=== PATIENT | male | born 1945 | race African-American/Black ===

== ENCOUNTER 2023-03-14 20:26 | Observation (INO) | payer MEDICARE, SELFPAY ==
[2023-03-14] VITALS (7 sets, daily range): BP systolic 129–147; BP diastolic 80–94; PULSE 79–97; RESP 15–20; TEMP 36.7–37.1; O2SAT 97–100
--- NOTE | ~2023-03-14 | XR_ITS ---
EXAMINATION: XR chest 1V portable DATE: 03/14/2023 21:55 INDICATION: Syncope. TECHNIQUE: A single frontal view of the chest was obtained. COMPARISON: None. FINDINGS: There is no pneumonia, pleural effusion, or pneumothorax. Cardiomegaly is noted. A screw ov erlies right acromion. IMPRESSION: 1. Cardiomegaly. Reviewed, dictated and finalized at location E. RSONIC ENGINEER IMPRESSION: 1. Cardiomegaly.
--- NOTE | ~2023-03-14 | US_ITS ---
EXAMINATION: US carotid duplex BI DATE: 03/15/2023 13:18 INDICATION: Syncope. Cerebral atherosclerosis. TECHNIQUE: Grayscale, color Doppler, and pulsed Doppler images of the cervical carotid arteries were obtained. The degree of vessel stenosis is placed in one of the following categories: normal, <50%, 5 0-69%, >=70% but less than near-occlusion, near-occlusion, or total occlusion. Note that percent sten osis relative to normal distal artery lumen diameter is indirectly measured from velocity measurement s as described by Magdi, et al. Radiology 2003; 229:340-346. COMPARISON: None. FINDINGS: RIGHT: The right common carotid artery (CCA) peak systolic velocity (PSV) is 62 cm/s. The right internal car otid artery (ICA) PSV is 78 cm/s. The right ICA end-diastolic velocity (EDV) is 11 cm/s. The right IC A/CCA PSV ratio is 1.3. Grayscale and color Doppler images yield an estimate of <50% diameter reducti on from plaque in the ICA. The external carotid artery (ECA) PSV is 60 cm/s. There is antegrade flow in the right vertebral artery. LEFT: The left CCA PSV is 70 cm/s. The left ICA PSV is 71 cm/s. The left ICA EDV is 19 cm/s. The left ICA/C CA PSV ratio is 1.0. Grayscale and color Doppler images yield an estimate of <50% diameter reduction from plaque in the ICA. The ECA PSV is 72 cm/s. There is antegrade flow in the left vertebral artery. IMPRESSION: 1. <50% stenosis in the right internal carotid artery. 2. <50% stenosis in the left internal carotid artery. 3. Cardiac arrhythmia is present. Correlate with EKG. Reviewed, dictated and finalized at location A. ST RESOURCE SPECIALIST
--- NOTE | ~2023-03-14 | CT_ITS ---
EXAMINATION: CT brain wo con DATE: 03/14/2023 21:05 INDICATION: Syncope. Fall. TECHNIQUE: Computed tomography (CT) of the head was performed without intravenous contrast. The mA wa s adjusted according to patient size. Iterative reconstruction technique was employed. The dose-lengt h product was 681.00 mGy-cm. COMPARISON: None FINDINGS: There are scattered areas of low attenuation in the cerebral white matter, which is within normal limits for the patient's age. There is no intracranial hemorrhage, acute infarction, or abnorm al intracranial mass lesion. The ventricles are normal in size. There are likely changes of right ocu lar lens replacement surgery. There is mild mucosal thickening in the ethmoid sinuses. The mastoid ai r cells are normal. IMPRESSION: 1. Normal aging brain. Reviewed, dictated and finalized at location E. ICAL DATA ASSOCIATE IMPRESSION: 1. Normal aging brain.
--- NOTE | ~2023-03-14 | CT_ITS ---
EXAMINATION: CTA chest PE protocol DATE: 03/14/2023 22:35 INDICATION: Shortness of breath. TECHNIQUE: Computed tomography angiography (CTA) of the chest was performed with 100 mL Omnipaque-350 intravenous contrast timed to evaluate the pulmonary arteries. Coronal maximum intensity projection 3D-reconstructions were created by the technologist. Automated exposure control and iterative reconst ruction technique were employed. The dose-length product was 775.16 mGy-cm. COMPARISON: None. FINDINGS: There is mild atelectasis bilaterally. No pleural effusion. Cardiomegaly is noted. No peric ardial effusion. There is ectasia of ascending aorta measuring 4.7 cm. There is no pulmonary embolus. There is a mildly enlarged prevascular node, likely reactive. There is severe thoracic spondylosis. IMPRESSION: 1. No pulmonary embolus. 2. Mildly enlarged mediastinal lymph node, likely reactive. 3. Ectasia of ascending aorta measuring 4.7 cm. Reviewed, dictated and finalized at location E. PLATER
--- NOTE | 2023-03-14 20:33 | ECG_ITS ---
Measurements Intervals [place] Rate: 84 P: [place]: 0 QRS: -59 QRSD: 96 T: 79 QT: 375 QTc: 444 Interpretive Statements ATRIAL FIBRILLATION MARKED LEFT AXIS DEVIATION [QRS AXIS < -30] ABNORMAL ECG NO PREVIOUS ECG AVAILABLE FOR COMPARISON Electronically Signed On 03-15-2023 17:31:01 LEAD PAINTER by Nito Newell M.D.
[2023-03-14 20:55] LABS: Basophils Percent Auto 0.8 % (0.2-1.2); Eosinophils Absolute Auto 0.3 K/mm3 (0-0.3); Eosinophils Percent Auto 5.5 % (0-4.4); Hematocrit 42.5 % (42.0-52.0); Hemoglobin 13.2 g/dL (14.0-18.0); Immature Granulocyte Absolute 0.01 K/mm3 (0.00-0.031); Immature Granulocyte Percent A 0.2 % (0-0.5); Lymphocytes Absolute Auto 1.35 K/mm3 (0.9-3.2); Lymphocytes Percent Auto 26.3 % (18.3-44.2); Mean Corpuscular HGB Conc 31.1 g/dl (32-36); Mean Corpuscular Volume 90.2 fl (80-100); Mean Platelet Volume 9.9 fl (7.4-10.4); Monocytes Absolute Auto 0.4 K/mm3 (0.1-0.6); Monocytes Percent Auto 8.2 % (2.6-8.5); Platelet Count Result 161 k/mm3 (150-375); Red Blood Count 4.71 M/mm3 (4.6-6.20); Red Cell Distribution Width 14.4 % (11.5-14.5); White Blood Count 5.1 K/mm3 (4.5-10.0)
[2023-03-14 21:07] LABS: Alanine Aminotransferase 35 U/L (6-50); Albumin Level 3.9 g/dL (3.5-5.1); Alkaline Phosphatase 109 U/L (38-126); Anion Gap 7 mmol/L (8-16); Aspartate Amino Transferase 40 U/L (17-59); Bilirubin,Total 1.9 mg/dL (0.2-1.3); Blood Urea Nitrogen 23 mg/dL (9-20); Calcium 8.9 mg/dL (8.4-10.2); Carbon Dioxide 27 mmol/L (22-30); Chloride 104 mmol/L (98-107); Estimated CRCL calculation 74 ml/min; Estimated Glomerular Filt Rate > 60; Glucose 106 mg/dL (65-110); Potassium 2.9 mmol/L (3.4-5.0); Sodium 138 mmol/L (137-145)
--- NOTE | 2023-03-14 21:56 | ED.DIZZY ---
HPI - Dizziness General Chief Complaint: Syncope <Mac Ocampo PA-C - Last Filed: 03/15/23 01:02> Stated Complaint: dizzy, syncope <Mac Ocampo PA-C - Last Filed: 03/15/23 01:02> Time Seen by Provider: 03/14/23 20:34 <Mac Ocampo PA-C - Last Filed: 03/15/23 01:02> Source: patient <GAYATRI Harris Last Filed: 03/15/23 01:02> Mode of arrival: EMS <GAYATRI Harris Last Filed: 03/15/23 01:02> Limitations: no limitations <Mac Ocampo PA-C - Last Filed: 03/15/23 01:02> History of Present Illness HPI Narrative: this is a 77-year-old male who presents to the ED via EMS from his home with chief complaint of syncopal episode. Reports 1 single episode 2 weeks ago and another 1 at occurring today. Reports he was seen by his primary doc 2 days ago and diagnosed with new onset AFib. The started on Eliquis, he was seen by polishing wheel repairer yesterday who increased his Eliquis. They were getting him set up for stress test and echocardiogram in the coming weeks. Patient reports that he bent over today to pick something up and when he stood up he felt lightheaded and had a syncopal episode. His is here and states he was out for about a minute. Denies head injury. Denies chest pain but does report that he felt short of breath earlier today. Reports leg swelling over the last few months that is increasing gradually as well as orthopnea. Denies fevers, chills, abdominal pain, nausea, vomiting, palpitations. <GAYATRI Harris Last Filed: 03/15/23 01:02> Related Data Home Medications: Home Medications Medication Instructions Recorded Confirmed amlodipine 10 mg tablet 10 mg PO DAILY 03/15/23 03/15/23 apixaban 5 mg tablet (Eliquis) 5 mg PO DAILY 03/15/23 03/15/23 atorvastatin 20 mg tablet 20 mg PO DAILY 03/15/23 03/15/23 hydrochlorothiazide 25 mg tablet 25 mg PO DAILY 03/15/23 03/15/23 hydrocodone 7.5 mg-acetaminophen 7.5 - 325 tablet PO DAILY 03/15/23 03/15/23 325 mg tablet metoprolol succinate 100 mg 100 mg PO DAILY 03/15/23 03/15/23 tablet,extended release 24 hr <Mac Ocampo PA-C - Last Filed: 03/15/23 01:02> Allergies/Adverse Reactions: Allergies Allergy/AdvReac Type Severity Reaction Status Date / Time No Known Allergies Allergy Verified 03/14/23 20:41 <Mac Ocampo PA-C - Last Filed: 03/15/23 01:02> Review of Systems Review of Systems: All systems as dictated in HPI <GAYATRI Harris Last Filed: 03/15/23 01:02> PMFSH Social History Social History: Social History Smoking status: Former smoker Alcohol intake: never Substance use: never Do You Feel Safe in your Home?: Yes Lack of Transportation: No Lack of Food: Never True Current Housing: I Have Housing Concerned About Future Housing: No Difficulty Paying Gas/Electric Bills: No Difficulty Paying for Meds: No Currently Unemployed: No Education: Decline to Answer Difficulty w/ Childcare or Family Care: No Spiritual care concerns: No <GAYATRI Harris Last Filed: 03/15/23 01:02> Exam Narrative: GENERAL: Well-appearing, well-nourished, and in no acute distress. HEAD: Normocephalic, atraumatic. EYES: PERRLA and EOMI. ENT: Nares clear, no rhinorrhea or epistaxis. Mucous membranes moist. Oropharynx without tonsillar hypertrophy exudate or other lesions. NECK: Supple. No adenopathy or masses. CHEST: No respiratory distress. Clear to auscultation. No wheezes rales or rhonchi HEART: Irregularly irregular rhythm. Normal rate.. No murmur heard. Normal peripheral pulses. ABDOMEN: Soft, nontender, nondistended, normal active bowel sounds. MSK: 1+ pitting edema to the bilateral ankles. SKIN: Warm, dry, no rash. NEURO: Alert and oriented x3. No focal deficits. PSYCH: Normal mood and affect. <GAYATRI Harris Last Filed: 03/15/23 01:02> Course DIRECTOR OF DIGITAL PLATFORMS/PA Physician Supervision For this patient encounter, I reviewed th
[2023-03-14 22:04] LABS: NT Pro B Type Natriuretic Pept 3660 pg/mL (19.9-100); Troponin I 0.147 ng/mL (0.000-0.034)
[2023-03-14] MEDS: POTASSIUM CHLORIDE 20 MEQ ER TABLET 40 MEQ PO (22:06)
[2023-03-14] MEDS: KCL 20 MEQ/SW 100 ML 100 ML 50 MEQ IVPB (23:07)
[2023-03-14] MEDS: SODIUM CHLORIDE 0.9% IV 500 ML IV CONT (23:07)
--- NOTE | 2023-03-14 23:59 | PM.IMHP ---
H&P: HPI History of Present Illness Date/Time: 03/14/23 23:59 Chief Complaint: syncope Narrative: This is a 77-year-old male with past medical history significant for hypertension, atrial fibrillation, rate controlled anticoagulated, patient presents to the emergency room after having a syncopal episode of while he bent over and upon standing syncopized and collapsed. Patient had a similar episode 2 days prior is scheduled for cardiology appointment in the outpatient setting through his primary care physician. Patient had some lightheadedness, palpitations at this time denies chest pain, nausea, vomiting, abdominal pain, cough, sputum production, fevers, rigors, chills, calf pain, PND, orthopnea has bilateral lower extremity ankle edema. The episode lasted for roughly for about a minute or so he was able to come back by himself. Preliminary workup was significant for troponins x2 mildly elevated at 0.147, 0.157 a BNP of 3660. Patient has been placed in observation for further evaluation management and treatment. EXAMINATION: CTA chest PE protocol DATE: 03/14/2023 22:35 INDICATION: Shortness of breath. TECHNIQUE: Computed tomography angiography (CTA) of the chest was performed with 100 mL Omnipaque-350 intravenous contrast timed to evaluate the pulmonary arteries. Coronal maximum intensity projection 3D-reconstructions were created by the technologist. Automated exposure control and iterative reconstruction technique were employed. The dose-length product was 775.16 mGy-cm. COMPARISON: None. FINDINGS: There is mild atelectasis bilaterally. No pleural effusion. Cardiomegaly is noted. No pericardial effusion. There is ectasia of ascending aorta measuring 4.7 cm. There is no pulmonary embolus. There is a mildly enlarged prevascular node, likely reactive. There is severe thoracic spondylosis. IMPRESSION: 1. No pulmonary embolus. 2. Mildly enlarged mediastinal lymph node, likely reactive. 3. Ectasia of ascending aorta measuring 4.7 cm. EXAMINATION: XR chest 1V portable DATE: 03/14/2023 21:55 INDICATION: Syncope. TECHNIQUE: A single frontal view of the chest was obtained. COMPARISON: None. FINDINGS: There is no pneumonia, pleural effusion, or pneumothorax. Cardiomegaly is noted. A screw overlies right acromion. IMPRESSION: 1. Cardiomegaly. EXAMINATION: CT brain wo con DATE: 03/14/2023 21:05 INDICATION: Syncope. Fall. TECHNIQUE: Computed tomography (CT) of the head was performed without intravenous contrast. The mA was adjusted according to patient size. Iterative reconstruction technique was employed. The dose-length product was 681.00 mGy-cm. COMPARISON: None FINDINGS: There are scattered areas of low attenuation in the cerebral white matter, which is within normal limits for the patient's age. There is no intracranial hemorrhage, acute infarction, or abnormal intracranial mass lesion. The ventricles are normal in size. There are likely changes of right ocular lens replacement surgery. There is mild mucosal thickening in the ethmoid sinuses. The mastoid air cells are normal. IMPRESSION: 1. Normal aging brain. Review of Systems Review of Systems: Syncope Constitutional: Constitutional: Denies chills, Denies fatigue, Denies fever(s), Denies frequent falls, Denies night sweats and Denies poor appetite Eyes: Eyes: Denies change in vision ENT: Denies dysphagia and Denies odynophagia Cardiovascular: Cardiovascular: Denies chest pain, Reports rapid heart rate, Reports pedal edema, Reports leg edema, Reports lightheadedness and Reports dyspnea on exertion Respiratory: Respiratory: Denies cough and Denies wheezing Gastrointestinal: Gastrointestinal: Denies abdominal pain, Denies dyspepsia, Denies heartburn, Denies diarrhea, Denies nausea and Denies vomiting Genitourinary: Genitourinary: Denies dysuria Musculoskeletal: Musculoskeletal: Denies back pain, Denies limited range of motion and Denies muscl
[2023-03-15] VITALS (18 sets, daily range): BP systolic 111–149; BP diastolic 69–95; PULSE 63–94; RESP 16–18; TEMP 36.1–36.8; O2SAT 96–100
--- NOTE | 2023-03-15 | ECG_ITS ---
Measurements Intervals [place] Rate: 81 P: [place]: 0 QRS: -22 QRSD: 97 T: 73 QT: 399 QTc: 466 Interpretive Statements ATRIAL FIBRILLATION BORDERLINE LEFT AXIS DEVIATION [QRS AXIS < -20] CANNOT RULE OUT PREVIOUS ANTEROSEPTAL HI ABNORMAL RHYTHM ECG COMPARED TO ECG 03/14/2023 20:36:56 NO SIGNIFICANT CHANGES Electronically Signed On 03-15-2023 17:39:32 MANAGER ESTATE by Nito Newell M.D.
[2023-03-15 00:36] LABS: Troponin I 0.159 ng/mL (0.000-0.034)
--- NOTE | 2023-03-15 01:19 | ADMGEN ---
This patient, Mike Granado, was admitted to IMU Room 206-01. Patient/family oriented to hospital policies and general routines including ID bracelet, bed and alarms, visiting hours, pain management, procedures, bathroom and other care routines, personal items, smoking policy, room service/diet, and visiting hours. Information on how to activate the Rapid Response Team has been discussed. Patient/Family are encouraged to report perceived risks to care and to ask questions if they do not understand what they are told or what they should do.
[2023-03-15] MEDS: ATORVASTATIN 20 MG TABLET PO (08:31)
[2023-03-15] MEDS: amLODIPine BESYLATE 5 MG TABLET 10 MG PO (08:32)
[2023-03-15] MEDS: APIXABAN 5 MG TABLET PO (08:32)
[2023-03-15] MEDS: HYDROcodone/acetaminophen (*CRX) 7.5-325 MG TABLET 1 TAB PO (08:32)
[2023-03-15] MEDS: METOPROLOL SUCCINATE EXT REL 100 MG TABCR PO (08:32)
[2023-03-15 08:35] LABS: Alanine Aminotransferase 33 U/L (6-50); Albumin Level 3.7 g/dL (3.5-5.1); Alkaline Phosphatase 99 U/L (38-126); Anion Gap 9 mmol/L (8-16); Aspartate Amino Transferase 43 U/L (17-59); Bilirubin Indirect 1.9 mg/dL (0-1.1); Blood Urea Nitrogen 19 mg/dL (9-20); Calcium 8.8 mg/dL (8.4-10.2); Carbon Dioxide 26 mmol/L (22-30); Chloride 105 mmol/L (98-107); Estimated CRCL calculation 74 ml/min; Estimated Glomerular Filt Rate > 60; Glucose 127 mg/dL (65-110); Magnesium 2.4 mg/dL (1.6-2.3); Potassium 3.3 mmol/L (3.4-5.0); Sodium 140 mmol/L (137-145)
[2023-03-15 09:12] LABS: Thyroid Stimulating Hormone Reflex 0.537 uIU/mL (0.465-4.68)
--- NOTE | 2023-03-15 09:33 | PM.CNCAR ---
Assessment and Plan Assessment and plan (1) Recurrent syncope: Code(s): R55 - Syncope and collapse Status: Acute Assessment and Plan: Precise etiology remains unclear at this time. However, historical description reveals consistent activity such as rising or change position leaning over just prior to loss of consciousness. While this was suggest more vasovagal etiology he was not orthostatic evaluation and denies intervening or progressive positional dizziness. Differential diagnosis includes carotid sinus hypersensitivity, pathologic/symptomatic bradycardia and or pathologic pause, less likely ventricular tachyarrhythmia, intravascular volume depletion, complication related to as yet undiagnosed underlying CAD or cardiomyopathy. At this time, primary concern is potential symptomatic bradycardia and/or pathologic pauses with atrial fibrillation on beta-toñito therapy remains a leading potential explanation. However, other considerations include carotid sinus hypersensitivity, ventricular arrhythmia particularly of LV dysfunction is noted which is a concern given elevated troponin possibly related to underlying as yet undiagnosed CAD. Then again, patient is not presenting with anginal symptoms or clinical suggestion of acute coronary syndrome yet at this time there is no other clear explanation for elevated troponin. We also discussed 30 day quality assurance monitor upon discharge and or implantable loop recorder. I would recommend and he would prefer more noninvasive approach in this regard initially particularly as his workup is ongoing. I also expressed my concern to the patient and to primary service with regards to continue systemic anticoagulation given recurrent unexplained syncope and this for head injury resulting catastrophic intracerebral bleeding complications yet patient remains at elevated risk for embolic stroke in persistent atrial fibrillation. Very difficult balance at this time. Recommend continue quality assurance monitor while in the hospital. Repeat orthostatic vital signs. Exclude infectious etiology as clinically relevant including urinalysis TSH was normal at 0.537. Correct electrolytes with potassium closer to 4.0. Liver function tests are normal. Check carotid arterial duplex ultrasound to assess for calcification carotid bulb, irregular eccentric plaquing more significant arterial stenosis than can be appreciated on exam. Very lengthy discussion held with the patient regarding the above considerations, workup and plan of care. Patient verbalized understanding. All questions answered to his satisfaction. Further recommendation to follow pending results. Overall, this is a very complicated yet pleasant gentleman which extensive workup is underway in the importance of expediting clarification of clinical status presentation is sepulveda. (2) Elevated troponin I level: Code(s): R79.89 - Other specified abnormal findings of blood chemistry Status: Acute Assessment and Plan: Fall patient is not presenting with anginal symptoms he does report longer standing exertional dyspnea which potentially may be anginal equivalent. He has no prior known history of CAD, however, given recurrent syncope, recent diagnosis of atrial fibrillation, age, hypertension hyperlipidemia CAD this statistically likely. If significant LV dysfunction and or focal wall motion abnormalities are identified may consider coronary angiography to delineate coronary anatomy given recurrent syncope, new cardiomyopathy. However, he does not carry this diagnosis and recommendation will need be forthcoming after review of his echocardiogram. Furthermore, he would require 48 hour washout of Eliquis to reduce bleeding complications which has not yet been held with his last dose morning of 03/15/23. (3) Exertional dyspnea: Code(s): R06.09 - Other forms of dyspnea Status: Acute Assessment and Plan: Elevated proBNP 3660 with mild lower ex
--- NOTE | 2023-03-15 11:24 | PM.IMPN ---
Progress Note: A&P Assessment and Plan (1) Syncope and collapse: Code(s): R55 - Syncope and collapse Status: Acute Assessment and Plan: Etiology unclear patient is having cardiac pauses could been exacerbated by vasovagal event. Consider ventricular dysrhythmias but nothing seen so far on telemetry. Not orthostatic. Head CT normal. DDimer postive but CTA negative for PE. Repeat orthostatic. Cards consulted and discussed. Echo ordered. Carotid US ordered. (2) Elevated troponin I level: Code(s): R79.89 - Other specified abnormal findings of blood chemistry Status: Acute Assessment and Plan: Slight elevation of troponin up to 0.18 EKG with atrial fibrillation with controlled rate and marked LAD. Echo ordered. Consider ischemic evaluation while hospitalized but defer to Cardiology (3) Afib: Qualifiers: Atrial fibrillation type: persistent (not longstanding) Qualified Code(s): I48.19 - Other persistent atrial fibrillation Code(s): I48.91 - Unspecified atrial fibrillation Status: Acute Assessment and Plan: Rate controlled and anticoagulated TSH normal. Continue to monitor on tele (4) Congestive heart failure: Code(s): I50.9 - Heart failure, unspecified Status: Acute Assessment and Plan: CXR showing CMP and clear lungs. BNP 3660 Patient with chronic CHF, type unknown Monitor intake and output Hold HCTZ Supportive care (5) Hypertension: Qualifiers: Hypertension type: primary hypertension Qualified Code(s): I10 - Essential (primary) hypertension Code(s): I10 - Essential (primary) hypertension Status: Acute (6) Ascending aortic aneurysm: Code(s): I71.21 - Aneurysm of the ascending aorta, without rupture Status: Acute Assessment and Plan: CTA chest showing ectasia of Ascending aorta at 4.7cm Will need to follow as outpatient (7) Hypokalemia: Code(s): E87.6 - Hypokalemia Status: Acute Assessment and Plan: Potassium low on admission at 2.9 and replacement ordered. Probably related to HCTZ Continue to monitor and replace as needed Plan Hyperbili - all indirect. Related to [place] DVT prophylaxis - Eliquis Code status - full Subjective Date/time seen: 03/15/23 11:24 Interval history: 77yo male with recently diagnosed AFiband CHF here for syncopal episode. Assuming care. Chart reviewed. He had a prior syncopal episode about a week before. He denies CP but having increasing SOB with activity. Both syncopal episodes occurred when bending over and mild straining. No n/v/d. On HCTZ. No stress test but plan for stress test next week. Exam Narrative: AF 97.2 135/75 71 16 96% ra Gen - NARD Chest - CTA bilaterally, nml RR CV -irregularly irregular. Telemetry showing AFib with controlled heart rate. Does have occasional cardiac pauses up to 3 seconds. Abd - Soft, NT/ND, Positive BS Ext -trace bilateral pedal edema. Psych - Nml mood and affect Skin - Warm and dry Objective Data Vital Signs Vital Signs: Vital Signs - 24 hr 03/14/23 20:27 03/14/23 23:10 03/14/23 23:13 Temperature 98.8 F Pulse Rate 91 79 90 Respiratory Rate 15 20 Blood Pressure 139/83 129/80 Pulse Oximetry 100 97 Oxygen Delivery Room Air 03/14/23 23:14 03/14/23 23:16 03/14/23 23:17 Temperature 98.1 F Pulse Rate 83 89 83 Respiratory Rate 20 Blood Pressure 129/80 147/84 H 133/94 H Pulse Oximetry 99 Oxygen Delivery 03/14/23 23:19 03/15/23 00:49 03/15/23 01:15 Temperature 98 F 98.2 F Pulse Rate 97 93 88 Respiratory Rate 16 18 Blood Pressure 134/88 120/89 147/95 H Pulse Oximetry 100 100 Oxygen Delivery 03/15/23 01:38 03/15/23 02:00 03/15/23 04:00 Temperature 98.0 F Pulse Rate 88 74 73 Respiratory Rate 18 18 Blood Pressure 111/69 Pulse Oximetry 100 100 Oxygen Delivery Room Air 03/15/23 04:00
[2023-03-15] MEDS: POTASSIUM CHLORIDE 20 MEQ ER TABLET 40 MEQ PO (12:43)
[2023-03-15] MEDS: SALINE 0.65% NAS SOLN 44 ML BTL 1 SPRAY NASAL (20:31)
[2023-03-16] VITALS (9 sets, daily range): BP systolic 103–134; BP diastolic 59–66; PULSE 59–84; RESP 14–16; TEMP 36.2–36.4; O2SAT 98–100
[2023-03-16 05:30] LABS: Basophils Percent Auto 0.5 % (0.2-1.2); Eosinophils Absolute Auto 0.4 K/mm3 (0-0.3); Eosinophils Percent Auto 8.3 % (0-4.4); Hematocrit 40.7 % (42.0-52.0); Hemoglobin 12.9 g/dL (14.0-18.0); Immature Granulocyte Absolute 0.02 K/mm3 (0.00-0.031); Immature Granulocyte Percent A 0.5 % (0-0.5); Lymphocytes Absolute Auto 1.63 K/mm3 (0.9-3.2); Lymphocytes Percent Auto 37.6 % (18.3-44.2); Mean Corpuscular HGB Conc 31.7 g/dl (32-36); Mean Corpuscular Hemoglobin 28.3 pg (26-34); Mean Corpuscular Volume 89.3 fl (80-100); Mean Platelet Volume 10.4 fl (7.4-10.4); Monocytes Absolute Auto 0.4 K/mm3 (0.1-0.6); Monocytes Percent Auto 8.1 % (2.6-8.5); Platelet Count Result 156 k/mm3 (150-375); Red Blood Count 4.56 M/mm3 (4.6-6.20); Red Cell Distribution Width 14.3 % (11.5-14.5); White Blood Count 4.3 K/mm3 (4.5-10.0)
[2023-03-16 05:46] LABS: Albumin Level 3.3 g/dL (3.5-5.1); Anion Gap 5 mmol/L (8-16); Blood Urea Nitrogen 18 mg/dL (9-20); Calcium 8.8 mg/dL (8.4-10.2); Carbon Dioxide 27 mmol/L (22-30); Chloride 108 mmol/L (98-107); Estimated CRCL calculation 81 ml/min; Estimated Glomerular Filt Rate > 60; Glucose 103 mg/dL (65-110); Magnesium 2.2 mg/dL (1.6-2.3); Phosphorus 3.1 mg/dL (2.5-4.5); Potassium 3.6 mmol/L (3.4-5.0); Sodium 140 mmol/L (137-145)
--- NOTE | 2023-03-16 06:00 | ECHO_ITS ---
Patient Info Name: Mike Granado Age: 77 years : 1945 Gender: Male Ht: 73 in Wt: 252 lbs BSA: 2.46 m2 HR: 61 bpm BP: 134 / 64 mmHg Heart Rhythm: Atrial Fibrillation Technical Quality: Fair Exam Date: 03/16/2023 11:36 AM Exam Location: Echo Lab Exam Room: [facility] Patient Status: Inpatient Admit Date: 03/15/2023 Staff Ordering Physician: Mac Ocampo PA-C Rag Collector: Ayesha Sexton RDCS Attending Provider: Pablito Narvaez MD Referring Physician: Terrence CAAL; Exam Type: CA echo doppler color flow Study Info Indications - AFIB ELEVATED BNP [place] Complete two-dimensional, color flow and Doppler transthoracic echocardiogram is performed. Summary 1. Complete two-dimensional, color flow and Doppler transthoracic echocardiogram is performed. 2. Marked concentric left ventricular hypertrophy with adequate systolic function and diastolic noncompliance. 3. Severe biatrial dilation. 4. Small amount of aortic mitral and pulmonic insufficiency. 5. Atrial fibrillation. Left Ventricle Left ventricular chamber dimension is normal. Left ventricular systolic function is normal, estimated at 50-55%. There is severe concentric increased left ventricular wall thickness. The left ventricular diastolic function is abnormal. Right Ventricle Right ventricular chamber dimension is normal. Left Atria Left atrial chamber dimension is severely enlarged. Right Atria Right atrial chamber dimension is severely enlarged. Aortic Valve The aortic valve is normal. There is mild aortic valve regurgitation. Pulmonic Valve The pulmonic valve is normal. Mitral Valve The mitral valve has normal leaflets. There is trace mitral valve regurgitation. Tricuspid Valve The tricuspid valve leaflets are normal. There is trace tricuspid valve regurgitation. Pericardium/Pleural The pericardium appears normal. Aorta The aortic root size at the sinus of Valsalva is mildly dilated. Left Ventricular Outflow Tract Name Value Normal LVOT 2D LVOT Diameter 2.1 cm LVOT Doppler LVOT Peak Gradient 5 mmHg LVOT Mean Gradient 3 mmHg LVOT VTI 18 cm LVOT VTI/AV VTI Ratio 0.7 LVOT Stroke Volume 63 ml LVOT CO 18.2 l/min LVOT CI 7.4 l/min/m2 Pulmonic Valve Name Value Normal RVOT Doppler RVOT Peak Gradient 2 mmHg PV Doppler PV Peak Gradient 3 mmHg PV Regurgitation Doppler IL Peak End Diastolic Velocity 141 cm/s Mitral Valve Name Ella
[2023-03-16] MEDS: amLODIPine BESYLATE 5 MG TABLET 10 MG PO (09:09)
[2023-03-16] MEDS: METOPROLOL SUCCINATE EXT REL 100 MG TABCR PO (09:09)
[2023-03-16] MEDS: HYDROcodone/acetaminophen (*CRX) 7.5-325 MG TABLET 1 TAB PO (09:09)
[2023-03-16] MEDS: ATORVASTATIN 20 MG TABLET PO (09:09)
--- NOTE | 2023-03-16 14:23 | PM.PNCARD ---
Progress Note: A&P Assessment and Plan (1) Afib: Qualifiers: Atrial fibrillation type: persistent (not longstanding) Qualified Code(s): I48.19 - Other persistent atrial fibrillation Code(s): I48.91 - Unspecified atrial fibrillation Status: Acute (2) Syncope and collapse: Code(s): R55 - Syncope and collapse Status: Acute Plan 77-year-old man with recently recognized atrial fibrillation and brief episode of syncope. Heart rate is well controlled with metoprolol and he is appropriately systemically anticoagulated. Echocardiogram was reviewed short time ago and in my opinion is strikingly abnormal and is actually very suggestive of cardiac amyloidosis. He has marked concentric hypertrophy with significant biatrial dilation and atrial fibrillation. He does have follow-up appropriately scheduled with his machine operators at [facility]. We will communicate with him regarding these echocardiographic findings. I would recommend cardiac MRI is the next step in his workup to evaluate for the possibility of amyloid. He is stable for discharge from our hospital at this time Nito Newell MD [facility] Subjective Date/time seen: Date of service: 03/16/23 14:23 Interval history: Follow-up visit in this 77-year-old man with: Pre syncopal episode from which he recovered spontaneously. Patient has history of atrial fibrillation recently diagnosed. He is anticoagulated and rate controlled with metoprolol. On telemetry thus far other been no arrhythmias that would explain syncope. Echocardiogram today was performed and was discussed with the patient in detail. She is asymptomatic. He would [facility] for follow-up with his machine operators at [facility]. Exam Const: General: comfortable and no acute distress Other: Very pleasant black male appearing his stated age comfortable cooperative no distress at all HENMT: Mouth: Yes moist mucous membranes Eyes: Sclera: sclerae normal Neck: Neck: supple and no JVD Resp: Effort & Inspection: normal respiratory effort Auscultation: clear to auscultation bilaterally Cardio: Rate: regular rate Rhythm: abnormal rhythm irregularly irregular GI: GI Palp: Yes Soft to palpation Auscultation: normal bowel sounds Skin: General skin exam: normal color Neuro: Other: Alert and oriented x3 Extrem: Other: Minimal edema, good distal pulses Objective Data Vital Signs Vital Signs: Vital Signs - 24 hr 03/15/23 16:00 03/15/23 16:30 03/15/23 17:39 Temperature 36.1 C L Pulse Rate 64 Respiratory Rate 16 Blood Pressure 137/76 127/81 149/81 H Pulse Oximetry 100 Oxygen Delivery 03/15/23 17:41 03/15/23 16:00 03/15/23 16:00 Temperature Pulse Rate 65 Respiratory Rate Blood Pressure 125/94 H Pulse Oximetry Oxygen Delivery Room Air 03/15/23 18:00 03/15/23 20:00 03/15/23 20:00 Temperature 36.2 C L Pulse Rate 83 76 76 Respiratory Rate 16 16 Blood Pressure 111/80 Pulse Oximetry 100 100 Oxygen Delivery Room Air 03/16/23 00:00 03/16/23 00:00 03/15/23 20:00 Temperature 36.4 C Pulse Rate 72 72 73 Respiratory Rate 16 16 Blood Pressure 116/66 Pulse Oximetry 100 100 Oxygen Delivery Room Air 03/15/23 22:00 03/16/23 00:00 03/16/23 02:00 Temperature Pulse Rate 70 61 64 Respiratory Rate Blood Pressure Pulse Oximetry Oxygen Delivery 03/16/23 04:00 03/16/23 04:00 03/16/23 04:00 Temperature 36.4 C Pulse Rate 64 68 74 Respiratory Rate 16 16 Blood Pressure 134/64 Pulse Oximetry 100 100 Oxygen Delivery Room Air 03/16/23 06:15 03/16/23 08:00 03/16/23 08:00 Temperature 36.4 C Pulse Rate 61 59 L Respiratory Rate 14 Blood Pressure 103/59 L Pulse Oximetry 98 98 Oxygen Delivery Room Air 03/16/23 08:00 03/16/23 10:00 03/16/23 12:00 Temperature 36.2 C L Pulse Rate 81 70 84 Respiratory Rate 16
--- NOTE | 2023-03-16 16:35 | PM.DS ---
DS: Admitting Diagnosis Discharge Date 03/16/23 Admitting Diagnosis Syncope DS: Discharge Diagnosis Discharge Diagnosis (1) Syncope and collapse: Code(s): R55 - Syncope and collapse Status: Acute (2) Elevated troponin I level: Code(s): R79.89 - Other specified abnormal findings of blood chemistry Status: Acute (3) Afib: Qualifiers: Atrial fibrillation type: persistent (not longstanding) Qualified Code(s): I48.19 - Other persistent atrial fibrillation Code(s): I48.91 - Unspecified atrial fibrillation Status: Acute (4) Congestive heart failure: Code(s): I50.9 - Heart failure, unspecified Status: Acute (5) Hypertension: Qualifiers: Hypertension type: primary hypertension Qualified Code(s): I10 - Essential (primary) hypertension Code(s): I10 - Essential (primary) hypertension Status: Acute (6) Ascending aortic aneurysm: Code(s): I71.21 - Aneurysm of the ascending aorta, without rupture Status: Acute (7) Hypokalemia: Code(s): E87.6 - Hypokalemia Status: Acute DS: Summary Hospital Course Reason for hospitalization: 77yo male with recently diagnosed AFib and CHF here for syncopal episode. Please see H&P for details. Hospital Course: Patient presents to ed after having 2 syncopal episodes about 1 week apart. Slight elevation of troponin up to 0.18. EKG with atrial fibrillation with controlled rate and marked LAD. TSH normal. He was placed on telemetry. Cardiology consulted. CXR showing CMP and clear lungs. BNP 3660. Patient with chronic diastolic CHF. We held HCTZ since may be intravascular depleted. Echo showing EF 50-55% with abnormal diastolic dysfunction. Cardiology felt patient may have amyloidosis. Etiology of syncope unclear. Patient is having cardiac pauses up to 3sec that could be exacerbated by vasovagal event. Consider ventricular dysrhythmias but nothing seen so far on telemetry. Pateint was not orthostatic. Head CT normal. DDimer postive but CTA negative for PE. Carotid US showing <50% stenosis bilateral ICA. CTA chest also showing ectasia of Ascending aorta at 4.7cm. This will need to followed as outpatient. Potassium low on admission at 2.9 and replacement ordered. Probably related to HCTZ. Hyperbili noted and all indirect. Related to [place]. Patient overall did well and wa able to be discharged on 03/16/23. Status at Discharge Cognitive/behavioral status at discharge: stable Time Spent with Patient Time attestation: Total time spent providing and/or coordinating discharge services: 35 minutes Time spent: Greater than 30 minutes Exam Narrative: AF 97.1 125/66 83 16 100% ra Gen - NARD Chest - CTA bilaterally, nml RR CV -irregularly irregular. Telemetry showing AFib with controlled heart rate. Abd - Soft, NT/ND, Positive BS Ext -no pedal edema. Psych - Nml mood and affect Skin - Warm and dry DS: Data Data Completed and Pending Labs on day of discharge: Labs from last 24 hours 03/16/23 03/16/23 04:53 04:52 WBC 4.3 L RBC 4.56 L Hgb 12.9 L Hct 40.7 L MCV 89.3 MCH 28.3 MCHC 31.7 L RDW 14.3 Plt Count 156 MPV 10.4 Immature Gran % (Auto) 0.5 Neut % (Auto) 45.0 L Lymph % (Auto) 37.6 Cloud % (Auto) 8.1 Eos % (Auto) 8.3 H Baso % (Auto) 0.5 Lymph # (Auto) 1.63 Cloud # (Auto) 0.4 Eos # (Auto) 0.4 H Baso # (Auto) 0.0 Abs Immat Gran (auto) 0.02 Absolute Neuts (auto) 2.0 Absolute Nucleated RBC 0.0 Nucleated RBC % 0.0 Sodium 140 Potassium 3.6 Chloride 108 H Carbon Dioxide 27 Anion Gap 5 L BUN 18 Creatinine 0.90 Estim Creat Clear Calc 81 Estimated GFR > 60 Glucose 103 Calcium 8.8 Phosphorus 3.1 Magnesium 2.2 Albumin 3.3 L Discharge Plan Discharge Attending physician on discharge: He Wong Consulting providers: Radha Rico Discharging Clinician: Shani
== END 2023-03-16 17:44 | disposition home or self-care (01) ==
LOC: ANHED 21:47 → ANHIMU 03-15 01:01
PROVIDERS: Student in an Organized Health Care Education/Training Program; Admitting Provider Internal Medicine; Emergency Provider Physician Assistant; Visit Provider Internal Medicine
DX: R55 Syncope and collapse (principal); R79.89 Other specified abnormal findings of blood chemistry; I48.19 Other persistent atrial fibrillation; R06.09 Other forms of dyspnea; R22.40 Localized swelling, mass and lump, unspecified lower limb; R06.01 Orthopnea; I11.0 Hypertensive heart disease with heart failure; I50.32 Chronic diastolic (congestive) heart failure; I34.0 Nonrheumatic mitral (valve) insufficiency; R79.1 Abnormal coagulation profile; I71.21 Aneurysm of the ascending aorta, without rupture; E87.6 Hypokalemia; R94.31 Abnormal electrocardiogram [ECG] [EKG]; Z79.01 Long term (current) use of anticoagulants; Z87.891 Personal history of nicotine dependence
CPT/HCPCS: 36415; 70450; 71045; 71275; 80053; 80069; 83735; 83880; 84443; 84484; 85025; 85380; 93005; 93306; 93880; 96374; 99285; A9270; G0378; J3480; J7040; Q9967

== ENCOUNTER 2023-04-16 19:28 | Inpatient (IN) | payer MEDICARE, SELFPAY ==
[2023-04-16] VITALS (9 sets, daily range): BP systolic 129–150; BP diastolic 62–89; PULSE 50–141; RESP 16–20; TEMP 36.4–36.8; O2SAT 99–100; BMI 26.1
--- NOTE | ~2023-04-16 | CT_ITS ---
EXAMINATION: CTA chest PE protocol DATE: 04/16/2023 20:48 INDICATION: Syncope. TECHNIQUE: Computed tomography angiography (CTA) of the chest was performed with 100 mL Omnipaque-350 intravenous contrast timed to evaluate the pulmonary arteries. Coronal maximum intensity projection 3D-reconstructions were created by the technologist. Automated exposure control and iterative reconst ruction technique were employed. The dose-length product was 1057.62 mGy-cm. COMPARISON: Chest CT 03/14/2023 FINDINGS: The lungs demonstrate mild atelectasis. Calcified right lung nodules are consistent with ol d granulomatous disease. No pleural effusion. Cardiomegaly is noted. There is a trace pericardial eff usion. There are coronary artery calcifications. There is ectasia of ascending aorta measuring 4.7 cm . There is no pulmonary embolus. There is severe thoracic spondylosis. IMPRESSION: 1. No pulmonary embolus. 2. Stable ectasia of ascending aorta measuring 4.7 cm. Reviewed, dictated and finalized at location E. OGRINDER OPERATOR
--- NOTE | ~2023-04-16 | CT_ITS ---
EXAMINATION: CT cervical spine wo con DATE: 04/16/2023 20:47 INDICATION: Syncope. Neck injury. TECHNIQUE: Computed tomography (CT) of the cervical spine was performed without intravenous contrast. Automated exposure control and iterative reconstruction technique were employed. The dose-length pro duct was 605.98 mGy-cm. COMPARISON: None FINDINGS: There is 2 mm anterolisthesis of C5 on C6 and 2 mm retrolisthesis of C6 on C7. There is hyp olordosis of cervical spine. Vertebral body heights are normal. There is mildly decreased disc height at C3-C4 and C5-C6 and severely decreased disc height at C6-C7. Osseous central spinal canal is deve lopmentally small. The following disc levels are specifically discussed: C2-C3: There is mild right and severe left uncovertebral joint osteoarthritis. There is severe bilate ral facet joint osteoarthritis. There is mild left neural foraminal stenosis. There is no central can al stenosis. C3-C4: There is mild bilateral uncovertebral joint osteoarthritis. There is severe bilateral facet lore int osteoarthritis. There is mild right and moderate left neural foraminal stenosis. There is moderat e central canal stenosis. C4-C5: There is mild bilateral uncovertebral joint osteoarthritis. There is severe bilateral facet lore int osteoarthritis. There is moderate left neural foraminal stenosis. There is moderate central canal stenosis. C5-C6: There is mild lateral uncovertebral joint osteoarthritis. There is severe bilateral facet join t osteoarthritis. There is moderate bilateral neural foraminal stenosis. There is moderate central ca nal stenosis. C6-C7: There is severe bilateral uncovertebral joint osteoarthritis. There is moderate bilateral face t joint osteoarthritis. There is moderate right and severe left neural foraminal stenosis. There is s evere central canal stenosis. C7-T1: There is mild right uncovertebral joint osteoarthritis. There is severe bilateral facet joint osteoarthritis. There is moderate right and mild left neural foraminal stenosis. There is mild centra l canal stenosis. IMPRESSION: 1. No fracture. 2. Severe cervical spondylosis. Reviewed, dictated and finalized at location E. LE WRAPPING MACHINE OPERATOR
--- NOTE | ~2023-04-16 | CT_ITS ---
EXAMINATION: CT brain wo con DATE: 04/16/2023 20:46 INDICATION: Syncope. TECHNIQUE: Computed tomography (CT) of the head was performed without intravenous contrast. The mA wa s adjusted according to patient size. Iterative reconstruction technique was employed. The dose-lengt h product was 681.00 mGy-cm. COMPARISON: Head CT 03/14/2023 FINDINGS: There are scattered areas of low attenuation in the cerebral white matter, which is within normal limits for the patient's age. There is no intracranial hemorrhage, acute infarction, or abnorm al intracranial mass lesion. The ventricles are normal in size. There are likely changes of right ocu lar lens replacement surgery. The paranasal sinuses are clear. The mastoid air cells are normal. IMPRESSION: 1. Normal aging brain. Reviewed, dictated and finalized at location E. ERY BUILDER IMPRESSION: 1. Normal aging brain.
--- NOTE | 2023-04-16 19:24 | ECG_ITS ---
Measurements Intervals [place] Rate: 88 P: IA: 0 QRS: -30 QRSD: 96 T: 79 QT: 378 QTc: 459 Interpretive Statements ATRIAL FIBRILLATION INCOMPLETE RIGHT BUNDLE BRANCH BLOCK CANNOT RULE OUT SEPTAL INFARCT, AGE INDETERMINATE BORDERLINE ST-T WAVE ABNORMALITY- HIGH LATERAL LEADS ABNORMAL ECG COMPARED TO ECG 03/15/2023 00:19:25 INCOMPLETE RIGHT BUNDLE-BRANCH BLOCK NOW PRESENT Electronically Signed On 04-17-2023 6:36:36 DRAWER FITTER by Montana Alonzo D.O.
[2023-04-16 20:09] LABS: Basophils Percent Auto 0.7 % (0.2-1.2); Eosinophils Absolute Auto 0.2 K/mm3 (0-0.3); Eosinophils Percent Auto 4.6 % (0-4.4); Hematocrit 45.1 % (42.0-52.0); Hemoglobin 13.9 g/dL (14.0-18.0); Immature Granulocyte Absolute 0.01 K/mm3 (0.00-0.031); Immature Granulocyte Percent A 0.2 % (0-0.5); Immature Platelet Fraction Pct 4.3 % (0.9-11.2); Lymphocytes Absolute Auto 1.74 K/mm3 (0.9-3.2); Lymphocytes Percent Auto 42.5 % (18.3-44.2); Mean Corpuscular HGB Conc 30.8 g/dl (32-36); Mean Corpuscular Hemoglobin 27.6 pg (26-34); Mean Corpuscular Volume 89.5 fl (80-100); Monocytes Absolute Auto 0.5 K/mm3 (0.1-0.6); Neutrophils Absolute Auto 1.7 K/mm3 (1.3-6.7); Platelet Count Result 122 k/mm3 (150-375); Red Blood Count 5.04 M/mm3 (4.6-6.20); Red Cell Distribution Width 14.6 % (11.5-14.5); White Blood Count 4.1 K/mm3 (4.5-10.0)
[2023-04-16 20:19] LABS: Alanine Aminotransferase 28 U/L (6-50); Albumin Level 3.8 g/dL (3.5-5.1); Alkaline Phosphatase 114 U/L (38-126); Anion Gap 9 mmol/L (8-16); Aspartate Amino Transferase 40 U/L (17-59); Bilirubin,Total 2.2 mg/dL (0.2-1.3); Blood Urea Nitrogen 15 mg/dL (9-20); Carbon Dioxide 25 mmol/L (22-30); Chloride 107 mmol/L (98-107); Estimated CRCL calculation 74 ml/min; Estimated Glomerular Filt Rate > 60; Glucose 104 mg/dL (65-110); Lipase 76 U/L (23-300); Magnesium 2.1 mg/dL (1.6-2.3); Potassium 3.4 mmol/L (3.4-5.0); Sodium 141 mmol/L (137-145)
[2023-04-16 20:31] LABS: Lactic Acid Reflex 1.5 mmol/L (0.7-2.0)
[2023-04-16 20:33] LABS: INR 1.3; Prothrombin Time 16.5 Seconds (11.1-14.7)
[2023-04-16 20:34] LABS: Partial Thromboplastin Time 30.2 SECONDS (22.3-36.8)
[2023-04-16 20:44] LABS: NT Pro B Type Natriuretic Pept 3070 pg/mL (19.9-100); Troponin I 0.105 ng/mL (0.000-0.034)
[2023-04-16 21:29] LABS: Appearance Urine Clear (Clear); Bacteria Urine None Seen /hpf; Bilirubin Urine Negative (Negative); Color Urine Yellow (Yellow); Glucose Urine UA 3+ mg/dL (Negative); Ketones Urine Negative (Negative); Leukocyte Esterase Ur Negative LEU/UL (Negative); Nitrate Urine Negative (Negative); Non Pathogenic Casts 0-2; Protein Urine Trace mg/dL (Negative); RBC Urine 0-2 /hpf (0-2); Squamous Epithelial Cell Urine None seen /hpf (Few); WBC Urine 0-5 /hpf
[2023-04-16 21:35] LABS: Specific Grav Ur 1.037 (1.001-1.035)
[2023-04-16 21:36] LABS: Add Urine Microscopic? YES
--- NOTE | 2023-04-16 22:10 | ED.GENADULT ---
HPI - General Adult General Chief complaint: Syncope Stated complaint: SYNCOPAL EPISODE WITH HEART HISTORY History of Present Illness HPI narrative: Patient 77-year-old gentleman who presents emergency department with chief complaint of syncope. Patient reports that he was diagnosed with atrial fibrillation recently in the hospital and today was outside and felt as though he was going to pass out patient states that he managed to make it inside a house yelled to his telling her that he was about to pass out sat down in a chair and then slumped over and fell on the ground patient reports that he is on anticoagulants reports has no pain in his head her neck the patient reports that he has had 6 other episodes of this occurring in the last month. Related Data Home Medications Medication Instructions Recorded Confirmed amlodipine 10 mg tablet 10 mg PO DAILY 03/15/23 03/15/23 apixaban 5 mg tablet (Eliquis) 5 mg PO DAILY 03/15/23 03/15/23 atorvastatin 20 mg tablet 20 mg PO DAILY 03/15/23 03/15/23 hydrochlorothiazide 25 mg tablet 25 mg PO DAILY 03/15/23 03/15/23 hydrocodone 7.5 mg-acetaminophen 7.5 - 325 tablet PO DAILY 03/15/23 03/15/23 325 mg tablet metoprolol succinate 100 mg 100 mg PO DAILY 03/15/23 03/15/23 tablet,extended release 24 hr Allergies Allergy/AdvReac Type Severity Reaction Status Date / Time No Known Allergies Allergy Verified 03/14/23 20:41 Review of Systems Review of Systems: A 10 system review of systems was completed on the patient and is negative except for what is stated in the HPI. Nursing and ancillary documentation was reviewed. [facility] Past Medical History Medical History Afib Hypertension Social History Social History Smoking status: Former smoker Alcohol intake: never Substance use: never Do You Feel Safe in your Home?: Yes Lack of Transportation: No Lack of Food: Never True Current Housing: I Have Housing Concerned About Future Housing: No Difficulty Paying Gas/Electric Bills: No Difficulty Paying for Meds: No Currently Unemployed: No Education: Decline to Answer Difficulty w/ Childcare or Family Care: No Spiritual care concerns: No Exam Narrative: GENERAL: Well-appearing, well-nourished, and in no acute distress. HEAD: Normocephalic, atraumatic. EYES: PERRLA and EOMI. ENT: Nares clear, no rhinorrhea or epistaxis. Mucous membranes moist. NECK: Supple. CHEST: Clear to auscultation. No respiratory distress. HEART: Irregular rate and rhythm. No murmur heard. Normal peripheral pulses. ABDOMEN: Soft, nontender, nondistended, normal active bowel sounds. EXTREMITIES: Normal range of motion. No edema. SKIN: Warm, dry, no rash. NEURO: No focal deficits. Alert and oriented x3. PSYCH: Normal mood and affect. Course Vital Signs Vital signs: Vital Signs Temperature 36.4 C 04/16/23 19:21 Pulse Rate 80 04/16/23 19:21 Respiratory Rate 18 04/16/23 19:21 Blood Pressure 139/73 04/16/23 19:21 Pulse Oximetry 100 04/16/23 19:21 Oxygen Delivery Room Air 04/16/23 19:21 Temperature 36.4 C 04/16/23 19:21 Pulse Rate 50 L 04/16/23 21:32 Respiratory Rate 20 04/16/23 21:15 Blood Pressure 143/67 H 04/16/23 21:32 Pulse Oximetry 100 04/16/23 21:15 Oxygen Delivery Room Air 04/16/23 19:30 Medical Decision Making [facility] Narrative Medical decision making narrative: Differential diagnosis includes dysrhythmia, PE, electrolyte abnormality, dehydration, ACS EKG showed atrial fibrillation the patient did have several brief runs of being tachycardic and also has had some episodes of being bradycardic. It is concerning given the patient has had multiple syncopal episodes the patient to be having tachy-isaiah symptoms with his atrial fibrillation. A CTA of the chest was obtained which showed no
[2023-04-16] MEDS: SODIUM CHLORIDE 0.9% IV 1,000 ML 70 ML IV CONT (22:38)
--- NOTE | 2023-04-16 22:51 | ECG_ITS ---
Measurements Intervals [place] Rate: 82 P: ID: 0 QRS: -30 QRSD: 94 T: 52 QT: 372 QTc: 435 Interpretive Statements ATRIAL FIBRILLATION INCOMPLETE RIGHT BUNDLE BRANCH BLOCK CANNOT RULE OUT SEPTAL INFARCT, AGE INDETERMINATE BORDERLINE ST-T WAVE ABNORMALITY- INF/HIGH LAT LEADS BASELINE ARTIFACT- I, III, AVL ABNORMAL ECG COMPARED TO ECG 04/16/2023 19:24:46 NO SIGNIFICANT CHANGES Electronically Signed On 04-17-2023 6:45:10 DIRECTOR OF MANUFACTURING OPERATIONS by Montana Alonzo D.O.
--- NOTE | 2023-04-16 23:08 | ADMGEN ---
This patient, Mike Granado Jr., was admitted to IMU Room 201-01. Patient/family oriented to hospital policies and general routines including ID bracelet, bed and alarms, visiting hours, pain management, procedures, bathroom and other care routines, personal items, smoking policy, room service/diet, and visiting hours. Information on how to activate the Rapid Response Team has been discussed. Patient/Family are encouraged to report perceived risks to care and to ask questions if they do not understand what they are told or what they should do.
[2023-04-16 23:12] LABS: Troponin I 0.113 ng/mL (0.000-0.034)
[2023-04-17] VITALS (22 sets, daily range): BP systolic 103–150; BP diastolic 57–88; PULSE 43–85; RESP 16–18; TEMP 36.4–36.9; O2SAT 96–100
--- NOTE | 2023-04-17 03:22 | PM.IMHP ---
H&P: HPI History of Present Illness Date/Time: 04/17/23 00:30 Chief Complaint: Syncope Narrative: 77-year-old pleasant male with a past medical history of Gilbert's, essential hypertension, obstructive sleep apnea, atrial fibrillation who presented to the ER via EMS after recurrent syncopal episode. Patient was diagnosed with atrial fibrillation about a week before [place] by primary care provider and started on Eliquis. Before could follow-up with Cardiology the patient was admitted on March 15 for syncopal episode. He was evaluated at our facility and had echocardiogram which demonstrated diastolic noncompliance, marked left ventricular hypertrophy and severe biatrial enlargement with small amount of aortic, pulmonic and mitral insufficiency. Patient was evaluated by [facility] Cardiology group and Cardiology was suspicious patient had amyloidosis. Patient was discharged on metoprolol that he had taken previously and his hydrochlorothiazide was discontinued. All of his other medications were essentially unchanged. Patient then went for follow-up with his primary weaving supervisor Dr. Wade at [facility]. He underwent KITTY which demonstrated intracardiac thrombus. They were unable to do cardioversion that was planned at that time. He was discharged to continue his anticoagulant. Jardiance was added to his medication regimen. He denies having history of diabetes. He underwent polysomnogram which demonstrated need for CPAP but he has not yet received communication from his physician regarding set up of CPAP. He was also referred to Dr. Mcclure at [place] for further recommendations. The patient's is at bedside and helps provide history with patient's permission. Patient has reportedly had total of 6 episodes of syncope over the last month. But had not had a syncopal episode since his last healthcare visit approximately 2 weeks ago until just before coming to the ER. He reports that they had just been out running errands and had gotten back. The patient had stood up from the car in did not feel quite right. He states that usually just before he has a syncopal episode he will feel short of breath and dizzy. He usually has anywhere from a few seconds to about 30 seconds to find a place to rest before he passes out. Today he was able to walk about 8 ft and sit down miss chair before he loss consciousness. His witnessed the syncopal event in stated the patient stared off into space and seemed like he was ?gone?. EMS was called and when they arrived on the scene the patient had heart rate that was ranging between 160 and 60 on their monitor. In the ER patient was noted to have heart rate that would be as high as 146 and then would rapidly dropped down to as low as 50. He did not have any loss of bowel or bladder activity. He was unconscious for less than a minute. He had no confusion after the event. He fell from his chair to the ground. He denies any headache or vision changes. He has not had any lower extremity swelling, leg pain, or chest pain. He has no persistent shortness of breath after these short intervals of shortness breath with syncope. He denied any symptoms that cooperate with his AFib prior to his recent diagnosis. His prior syncopal episode with his prior admission occurred from when he was bending forward and then would stand up. Other episodes have occurred while he was already seated. He did have an of vent monitor for a total of 5 days at home due to difficulty with equipment issues. No evidence of syncope occurred while he was wearing the monitor. His symptoms have completely resolved at this point. In the ER orthostatic vitals were obtained and were negative. Review of Systems Review of Systems: 12 systems were reviewed with pertinent positives and negatives per HPI. Except as documented in the HPI, all other systems were reviewed and are negative. [facility] Past Medical History Medical History (Updated
[2023-04-17] MEDS: ATORVASTATIN 20 MG TABLET PO (08:09)
[2023-04-17] MEDS: APIXABAN 5 MG TABLET PO ×2 (08:10→22:03)
[2023-04-17] MEDS: amLODIPine BESYLATE 5 MG TABLET 10 MG PO (08:10)
[2023-04-17] MEDS: FUROSEMIDE 40 MG TABLET PO (08:10)
[2023-04-17] MEDS: EMPAGLIFLOZIN 10 MG TABLET PO (08:10)
[2023-04-17] MEDS: METOPROLOL SUCCINATE EXT REL 100 MG TABCR PO (08:10)
--- NOTE | 2023-04-17 10:16 | PM.CNCAR ---
Assessment and Plan Assessment and plan (1) Syncope and collapse: Code(s): R55 - Syncope and collapse Status: Acute Assessment and Plan: Patient's outpatient workup shows a PYP scan which is highly suspicious for cardiac amyloidosis. He has been referred to Team Manager Dr. Madrid at [place] for further evaluation, and has an upcoming appointment with him next month. Outpatient event monitor (which was worn for 6 days) showed 100% burden of atrial fibrillation, with average heart rate of 66bpm. He had a 3.2 second pause on the monitor, but this was noted to be during sleeping hours. Heart rate ranged from 51bpm to 135bpm. Frequent ventricular ectopy noted without sustained ventricular arrhythmias. Thus far, on tele here, his heart rate noted to be in the 50s - 60s. Remains in atrial fibrillation. If he truly does have cardiac amyloidosis, amyloid patients may not tolerate high-doses of beta toñito, therefore, will decrease dose of Toprol from 100mg to 50mg once daily. Continue to closely monitor on tele. No clear indication for pacemaker at this time. He had a 1 week outpatient monitor done at end of February (he did not have any syncopal episodes while wearing that monitor), so recommend to discharge patient with a 30 day monitor if inpatient telemetry is unremarkable. If he does have cardiac amyloidosis, it is prudent to avoid any hypotension. SBP in the 104s this morning. I will stop his Lasix. Decrease dose of Amlodipine to 5mg. Monitor blood pressures. Monitor volume status closely. If he does need diuretic to maintain euvolemia, can consider resuming his Lasix at low dose or use as PRN. (2) Afib: Qualifiers: Atrial fibrillation type: unspecified Qualified Code(s): I48.91 - Unspecified atrial fibrillation Code(s): I48.91 - Unspecified atrial fibrillation Status: Acute Assessment and Plan: If he truly does have cardiac amyloidosis, prefer rate control strategy over rhythm control. Amyloid patients may not tolerate high-doses of beta toñito, and given his baseline bradycardia, I will decrease his dose of Toprol from 100mg to 50mg once daily and see how his rates do with that. Continue Eliquis for anticoagulation (if he does have cardiac amyloidosis, anticoagulation is indicated regardless of his [id number] VASC score). (3) Thrombus of atrial appendage: Code(s): I51.3 - Intracardiac thrombosis, not elsewhere classified Status: Acute Assessment and Plan: Continue Eliquis without any interruption. Plan Recommendations and plan discussed with Hospitalist. History of Present Illness History of Present Illness Consult date/time: 04/17/23 10:16 Requesting physician: He Carpenter MD Consult reason: Other (Syncope) Reason For Visit: Syncope, AFib Narrative: We are consulted for syncope. This is a 77 year old male with hypertension, hyperlipidemia, atrial fibrillation who we had initially seen in February 2023 for syncope. Echocardiogram obtained at that time was concerning for cardiac amyloidosis, however, other syncope workup was otherwise negative. His primary methods specialist is Dr. Lamar at [facility], and he was instructed to follow up with Dr. Lamar after hospital discharge. Patient presented to [facility] on 04/16 for recurrent syncope. He states that he has passed out 5-6 times since the end of February when he was here last time. Patient states that he usually starts walking, and after walking for some time, he gets short of breath and dizzy and then passes out. He states that for most of the episodes, he loses consciousness for a minute or two. The longest he has lost consciousness for is about 5 minutes. Upon EMSarrival, they had noted his heart rate to be ranging from 60bpm to 160bpm. In the ER, heart rate range noted to be in the 50s to 146. Orthostatic vital signs obtained in the ER were negative. Head CT negative. EKGs show rate controlled atrial fibrill
--- NOTE | 2023-04-17 14:40 | PM.IMPN ---
Progress Note: A&P Assessment and Plan (1) Recurrent syncope: Code(s): R55 - Syncope and collapse Status: Acute Assessment and Plan: Near syncope; Stable (2) Afib: Qualifiers: Atrial fibrillation type: unspecified Qualified Code(s): I48.91 - Unspecified atrial fibrillation Code(s): I48.91 - Unspecified atrial fibrillation Status: Acute (3) Thrombus of atrial appendage: Code(s): I51.3 - Intracardiac thrombosis, not elsewhere classified Status: Acute (4) Elevated troponin I level: Code(s): R79.89 - Other specified abnormal findings of blood chemistry Status: Acute (5) Obstructive sleep apnea: Code(s): G47.33 - Obstructive sleep apnea (adult) (pediatric) Status: Acute (6) Congestive heart failure: Qualifiers: Heart failure type: diastolic Heart failure chronicity: chronic Qualified Code(s): I50.32 - Chronic diastolic (congestive) heart failure Code(s): I50.9 - Heart failure, unspecified Status: Acute Plan Cardiology: intends to keep patient with concerns for Amyloidosis; will adjust Amlodipine and diuretic Rx If he does have cardiac amyloidosis, it is prudent to avoid any hypotension. SBP in the 104s this morning. I will stop his Lasix. Decrease dose of Amlodipine to 5mg. Monitor blood pressures. Monitor volume status closely. If he does need diuretic to maintain euvolemia, can consider resuming his Lasix at low dose or use as PRN. Given position change just prior to syncopal event vasovagal syncope is also possibility but patient's orthostatic vital signs are negative. Cardiology has been consulted for further recommendations. Patient does have known thrombus to his left atrial appendage. He will be continued on Eliquis. Patient does diastolic dysfunction noted on recent echocardiogram he appears euvolemic. Initially on review of patient's lab he did have elevated urine specific gravity and concern for possible dehydration but on review of medications the patient was started on Jardiance for cardioprotective effects and had 3+ glucose in his urine which likely resulted in the elevated urine specific gravity. Otherwise the patient is well hydrated. Will discontinue IV fluids. Patient does have troponin elevation but troponin was lower than prior hospitalization and level is relatively flat on repeat. Patient is not having symptoms of chest pain or dyspnea on exertion that would indicate acute ischemic etiology. Troponin elevation likely due to his atrial fibrillation and diastolic dysfunction. Patient had a sleep study recently that indicated obstructive sleep apnea. Will place patient on auto titrating CPAP. Time Spent With Patient Time with patient: 25 - 35 minutes Subjective Date/time seen: 04/17/23 14:40 Interval history: Seen and examined; eager to go home Review of Systems Review of Systems: 12 systems were reviewed with pertinent positives and negatives per HPI. Except as documented in the HPI, all other systems were reviewed and are negative. Exam Narrative: Weight 89.7 kg BMI 26.1 Const: Other: Well-developed, well-nourished, no acute distress HENMT: Other: Mucous membranes are moist, no oral pharyngeal erythema, upper dentures in place, lower dentition for the most part is intact, head is normocephalic atraumatic Eyes: Other: Exophthalmos, mild scleral icterus, no conjunctival pallor, pupils are equal and constricted with evidence of prior lens replacements, extraocular movements intact Neck: Other: No JVD, supple, large neck circumference Resp: Other: Clear to auscultation bilaterally, no increased work of breathing Cardio: Other: Irregularly irregular, rate controlled, no murmur, 2+ bilateral radial pedal pulses GI: Other: Soft, nontender, nondistended, normoactive bowel sounds, no organomegaly Skin: Other: No ja
[2023-04-17] MEDS: FLUTICASONE PROPIONATE 0.05% NA SPR 16 GM BTL (*BKC) 1 SPRAY NASAL (22:03)
[2023-04-18] VITALS (13 sets, daily range): BP systolic 120–137; BP diastolic 50–77; PULSE 55–75; RESP 18–20; TEMP 36.4–36.8; O2SAT 98–100
[2023-04-18] MEDS: APIXABAN 5 MG TABLET PO (08:27)
[2023-04-18] MEDS: FLUTICASONE PROPIONATE 0.05% NA SPR 16 GM BTL (*BKC) 1 SPRAY NASAL (08:27)
[2023-04-18] MEDS: EMPAGLIFLOZIN 10 MG TABLET PO (08:28)
[2023-04-18] MEDS: amLODIPine BESYLATE 5 MG TABLET PO (08:28)
[2023-04-18] MEDS: ATORVASTATIN 20 MG TABLET PO (08:28)
[2023-04-18] MEDS: METOPROLOL SUCCINATE EXT REL 50 MG TABCR PO (08:28)
--- NOTE | 2023-04-18 11:05 | PM.PNCARD ---
Progress Note: A&P Assessment and Plan (1) Syncope and collapse: Code(s): R55 - Syncope and collapse Status: Acute Assessment and Plan: Patient's outpatient workup shows a PYP scan which is highly suspicious for cardiac amyloidosis. He has been referred to Oil Tester Dr. Madrid at [place] for further evaluation, and has an upcoming appointment with him next month. Outpatient event monitor (which was worn for 6 days) showed 100% burden of atrial fibrillation, with average heart rate of 66bpm. He had a 3.2 second pause on the monitor, but this was noted to be during sleeping hours. Heart rate ranged from 51bpm to 135bpm. Frequent ventricular ectopy noted without sustained ventricular arrhythmias. Thus far, on tele here, his heart rate noted to be in the 50s - 60s. Remains in atrial fibrillation. If he truly does have cardiac amyloidosis, amyloid patients may not tolerate high-doses of beta toñito, therefore, will continue his lower dose of Toprol. No clear indication for pacemaker at this time. He had a 1 week outpatient monitor done at end of February (he did not have any syncopal episodes while wearing that monitor), so recommend to discharge patient with a 30 day monitor if inpatient telemetry is unremarkable. Blood pressure is stable. Continue to hold furosemide and use low-dose amlodipine. If he does need diuretic to maintain euvolemia, can consider resuming his Lasix at low dose or use as PRN. (2) Afib: Qualifiers: Atrial fibrillation type: unspecified Qualified Code(s): I48.91 - Unspecified atrial fibrillation Code(s): I48.91 - Unspecified atrial fibrillation Status: Acute Assessment and Plan: If he truly does have cardiac amyloidosis, prefer rate control strategy over rhythm control. Amyloid patients may not tolerate high-doses of beta toñito, and given his baseline bradycardia, continue Eliquis and metoprolol. (3) Thrombus of atrial appendage: Code(s): I51.3 - Intracardiac thrombosis, not elsewhere classified Status: Acute Assessment and Plan: Continue Eliquis without any interruption. Plan Okay for discharge from my perspective. Patient follows with as an outpatient and will be seeing Dr. Madrid. 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 Feels good. No chest pain or shortness of breath. Review of Systems Review of Systems: All systems reviewed & are unremarkable except as noted in HPI and below Constitutional: Constitutional: Denies body ache(s) ENT: Reports Normal hearing present Cardiovascular: Cardiovascular: Denies chest pain Respiratory: Respiratory: Denies dyspnea Gastrointestinal: Gastrointestinal: Denies abdominal pain Genitourinary: Genitourinary: Denies hematuria Musculoskeletal: Musculoskeletal: Denies joint swelling Integumentary/Breasts: Skin/Breast: Denies rash Neurologic: Denies Abnormal speech present Psychiatric: Psychiatric: Denies anxiety Endocrine: Endocrine: Denies change in body appearance Hematologic/Lymphatic: Hematologic/Lymphatic: Denies easy bleeding Allergic/Immunologic: Allergic/Immunologic: Denies GI upset with certain foods Exam Const: General: comfortable and no acute distress HENMT: Mouth: Yes moist mucous membranes Eyes: General: appearance normal, both eyes and all related structures Sclera: sclerae normal Neck: Neck: supple Resp: Effort & Inspection: normal respiratory effort Auscultation: clear to auscultation bilaterally Cardio: Rate: regular rate Rhythm: abnormal rhythm Heart sounds: no murmurs GI: Inspection: non-distended Skin: General skin exam: normal color Neuro: Speech: normal speech Extrem: General: normal to inspection Psych: Mental Status: mental statu
--- NOTE | 2023-04-18 13:48 | PM.DS ---
DS: Admitting Diagnosis Discharge Date 04/18/23 Admitting Diagnosis Syncope; Pre-syncope Loss of consciousness DS: Discharge Diagnosis Discharge Diagnosis Plan Assessment and Plan (1) Recurrent syncope: ?Code(s): R55 - Syncope and collapse ?Status:?Acute ?Assessment and Plan: Near syncope; Stable (2) Afib: ?Qualifiers: ?Atrial fibrillation type:?unspecified? Qualified Code(s):?I48.91 - Unspecified atrial fibrillation ?Code(s): I48.91 - Unspecified atrial fibrillation ?Status:?Acute (3) Thrombus of atrial appendage: ?Code(s): I51.3 - Intracardiac thrombosis, not elsewhere classified ?Status:?Acute (4) Elevated troponin I level: ?Code(s): R79.89 - Other specified abnormal findings of blood chemistry ?Status:?Acute (5) Obstructive sleep apnea: ?Code(s): G47.33 - Obstructive sleep apnea (adult) (pediatric) ?Status:?Acute (6) Congestive heart failure: ?Qualifiers: ?Heart failure type:?diastolic??Heart failure chronicity:?chronic? Qualified Code(s):?I50.32 - Chronic diastolic (congestive) heart failure ?Code(s): I50.9 - Heart failure, unspecified ?Status:?Acute Plan Cardiology: intends to keep patient with concerns for Amyloidosis; will adjust Amlodipine and diuretic Rx If he does have cardiac amyloidosis, it is prudent to avoid any hypotension. SBP in the 104s this morning. I will stop his Lasix. Decrease dose of Amlodipine to 5mg. Monitor blood pressures. Monitor volume status closely. If he does need diuretic to maintain euvolemia, can consider resuming his Lasix at low dose or use as PRN. DS: Summary Hospital Course Reason for hospitalization: Syncope; Loss of consciousness Hospital Course: Chief Complaint: Syncope Narrative: 77-year-old pleasant male with a past medical history of Gilbert's, essential hypertension, obstructive sleep apnea, atrial fibrillation who presented to the ER via EMS after recurrent syncopal episode.? Patient was diagnosed with atrial fibrillation about a week before Arleen by primary care provider and started on Eliquis.? Before could follow-up with Cardiology the patient was admitted on March 15 for syncopal episode.? He was evaluated at our facility and had echocardiogram which demonstrated diastolic noncompliance, marked left ventricular hypertrophy and severe biatrial enlargement with small amount of aortic, pulmonic and mitral insufficiency.? Patient was evaluated by [facility] Cardiology group and Cardiology was suspicious patient had amyloidosis.? Patient was discharged on metoprolol that he had taken previously and his hydrochlorothiazide was discontinued.? All of his other medications were essentially unchanged.? Patient then went for follow-up with his primary oil well service operator Dr. Wade at [facility].? He underwent KITTY which demonstrated intracardiac thrombus.? They were unable to do cardioversion that was planned at that time.? He was discharged to continue his anticoagulant.? Jardiance was added to his medication regimen.? He denies having history of diabetes.? He underwent polysomnogram which demonstrated need for CPAP but he has not yet received communication from his physician regarding set up of CPAP.? He was also referred to Dr. Mcclure at [place] for further recommendations. The patient's is at bedside and helps provide history with patient's permission.? Patient has reportedly had total of 6 episodes of syncope over the last month.? But had not had a syncopal episode since his last healthcare visit approximately 2 weeks ago until just before coming to the ER.? He reports that they had just been out running errands and had gotten back.? The patient had stood up from the car in did not feel quite right.? He states that usually just before he has a syncopal episode he will feel short of breath and dizzy.? He usually has anywhere from a few seconds to about 30 seconds to find a place to rest befor
== END 2023-04-18 15:09 | disposition home or self-care (01) | DRG 312 ==
LOC: ANHED 22:14 → ANHIMU 22:43
PROVIDERS: Admitting Provider Internal Medicine; Emergency Provider Emergency Medicine; Visit Provider Internal Medicine
DX: R55 Syncope and collapse (principal); I50.32 Chronic diastolic (congestive) heart failure; I24.89 Other forms of acute ischemic heart disease; I48.91 Unspecified atrial fibrillation; I51.3 Intracardiac thrombosis, not elsewhere classified; F41.9 Anxiety disorder, unspecified; G47.33 Obstructive sleep apnea (adult) (pediatric); E80.4 Gilbert syndrome; I11.0 Hypertensive heart disease with heart failure; E78.5 Hyperlipidemia, unspecified; Z87.891 Personal history of nicotine dependence; Z98.42 Cataract extraction status, left eye; Z98.41 Cataract extraction status, right eye; Z85.46 Personal history of malignant neoplasm of prostate
CPT/HCPCS: 36415; 70450; 71275; 72125; 80053; 81001; 83605; 83690; 83735; 83880; 84484; 85025; 85055; 85610; 85730; 93005; 99285; A9270; G0378; J7030; Q9967